=== PATIENT | male | born 1995 | race Caucasian/White ===

== ENCOUNTER 2017-08-19 10:44 | Emergency (ER) | payer OTHER ==
[~2017-08-19] VITALS: Ht 172.7 cm; Wt 72.6 kg
[~2017-08-19 10:44] MED LIST: AMOX500 PO; CODACE30 PO; [UNRECOGNIZED DRUG - OTHER]
[2017-08-19] MEDS ORDERED: Ultram50 MG PO (11:04)
[2017-08-19] MEDS ORDERED: Augmentin 875-1 EACH PO (11:04)
== END 2017-08-19 11:12 | disposition home or self-care (01) ==
LOC: ER 10:44
DX: K04.7 Periapical abscess without sinus (principal); K03.81 Cracked tooth; J45.909 Unspecified asthma, uncomplicated; F17.200 Nicotine dependence, unspecified, uncomplicated
CPT/HCPCS: 99283

== ENCOUNTER 2020-03-15 18:52 | Emergency (ER) | payer OTHER ==
[~2020-03-15] VITALS: Ht 172.7 cm; Wt 65.8 kg
[~2020-03-15 18:52] MED LIST changes: +Augmentin 875-1 EACH PO; +Ultram50 MG PO
[2020-03-15] MEDS ORDERED: Amoxicillin875 MG PO (20:39)
[2020-03-15] MEDS ORDERED: Norco 5-325 Ta1 EACH PO (20:39)
== END 2020-03-15 20:44 | disposition home or self-care (01) ==
LOC: ER 18:52
DX: K04.7 Periapical abscess without sinus (principal); F17.210 Nicotine dependence, cigarettes, uncomplicated
CPT/HCPCS: 64400; 99282-25

== ENCOUNTER 2020-03-16 05:18 | Emergency (ER) | payer OTHER ==
[~2020-03-16] VITALS: Ht 177.8 cm; Wt 65.8 kg
[~2020-03-16 05:18] MED LIST changes: +Amoxicillin875 MG PO; +Norco 5-325 Ta1 EACH PO
== END 2020-03-16 06:49 | disposition home or self-care (01) ==
LOC: ER 05:18
DX: K08.89 Other specified disorders of teeth and supporting structures (principal); F17.210 Nicotine dependence, cigarettes, uncomplicated
CPT/HCPCS: 64400; 99282-25

== ENCOUNTER 2020-04-10 01:11 | Emergency (ER) | payer OTHER ==
[~2020-04-10] VITALS: Ht 177.8 cm; Wt 70.3 kg
== END 2020-04-10 03:16 | disposition left against medical advice (07) ==
LOC: ER 01:11
DX: Z53.21 Procedure and treatment not carried out due to patient leaving prior to being seen by health care provider (principal)